=== PATIENT | female | born 1985 | race Caucasian/White ===

== ENCOUNTER 2020-12-19 22:10 | Emergency (ER) | payer SELFPAY ==
[~2020-12-19] VITALS: Ht 149.9 cm; Wt 63.5 kg
[2020-12-19 22:18] VITALS: BP 133/78
--- NOTE | 2020-12-19 22:18 | NUR ---
TO BED AMBULATORY
--- NOTE | 2020-12-19 22:33 | NUR ---
35 Y/O F CAME TO THE ED WITH LOWER ABDOMINAL PAIN. PT STATED THAT SH WENT [facility] THE [facility] TO GET SEAFO[facility], AND BROUGHT IT HOME, AND ATE THE LEFTOVERS WHEN THE PAIN STARTED. PT HAS NAUSEA, VOMITTING, DIAARHEA. PT IS COMPLAINING OF SHARP PAIN OF 8/10. A&OX4 PMH: DENIES NKA
[2020-12-19] MEDS ORDERED: ONDANSETRON 4 MG/2 ML VIAL IVP ONE (22:50)
[2020-12-19] MEDS ORDERED: NACL 0.9% 1,000 ML IV ONE (22:50)
[2020-12-19] MEDS ORDERED: KETOROLAC 30 MG/ML VIAL IVP ONE (22:50)
[2020-12-19 23:05] LABS: APPEARANCE,URINE CLEAR (CLEAR); BILIRUBIN,URINE NEGATIVE (NEGATIVE); BLOOD, URINE NEGATIVE (NEGATIVE); COLOR,URINE YELLOW (YELLOW); LEUKOCYTE ESTERASE ,URINE NEGATIVE (NEGATIVE); NITRITE, URINE NEGATIVE (NEGATIVE); PH,URINE 5.5 (5.0-9.0); UGLUCOSE NEGATIVE (NEGATIVE)
[2020-12-19 23:19] LABS: BASOPHILS # (AUTO) 0.1 K/uL (0.00-0.22); BASOPHILS % (AUTO) 0.9 % (0.0-2.0); EOSINOPHILS # (AUTO) 0.1 K/uL (0-0.4); HEMATOCRIT 35.4 % (36-48); HEMOGLOBIN 11.6 g/dL (12.0-16.0); LYMPHOCYTES # (AUTO) 2.1 K/uL (2.5-16.5); LYMPHOCYTES % (AUTO) 28.6 % (20.5-51.1); MEAN CORPUSCULAR HEMOGLOBIN 28 pg (27-31); MEAN CORPUSCULAR HGB CONC 33 g/dL (33-37); MEAN CORPUSCULAR VOLUME 86.9 fL (80-94); MONOCYTES # (AUTO) 0.5 K/uL (0.8-1.0); MONOCYTES % (AUTO) 6.6 % (1.7-9.3); NEUTROPHILS # (AUTO) 4.6 K/uL (1.8-7.7); NEUTROPHILS % (AUTO) 61.9 % (42.2-75.2); PLATELET COUNT (AUTO) 406 K/uL (140-450); RED BLOOD CELL COUNT(AUTO) 4.08 MIL/uL (4.20-5.40); RED CELL DISTRIBUTION WIDTH 16.2 % (11.6-13.7); WHITE BLOOD COUNT (AUTO) 7.5 K/uL (4.8-10.8)
[2020-12-19 23:41] LABS: ALBUMIN 3.8 g/dL (3.4-5.0); ANION GAP 14.4 (8-16); CARBON DIOXIDE 25.4 mmol/L (21-32); CREATININE 0.8 mg/dL (0.6-1.3); POTASSIUM 3.8 mmol/L (3.5-5.1); TOTAL BILIRUBIN 0.3 mg/dL (0.0-1.0)
[2020-12-20] MEDS ORDERED: ONDA4TAB PO (00:09)
[2020-12-20 00:23] VITALS: BP 133/78
== END 2020-12-20 00:23 | disposition home or self-care (01) ==
LOC: MED 22:10
DX: R11.2 Nausea with vomiting, unspecified (principal); R19.7 Diarrhea, unspecified; E86.0 Dehydration; R51.9 Headache, unspecified
CPT/HCPCS: 36415; 80053; 81003; 83690; 85025; 96361; 96374; 96375; 99284; J1885; J2405; J7030